=== PATIENT | male | born 1985 | race Caucasian/White ===

== ENCOUNTER 2017-12-20 11:25 | Emergency (ER) | payer BC, SELFPAY ==
[2017-12-20 11:53] LABS: #Basophils 0.1 thou/uL (0.0-0.2); #Eosinphils 0.1 thou/uL (0.0-0.7); #Lymphocytes 3.4 thou/uL (1.20-3.40); #Monocytes 0.7 thou/uL (0.11-0.59); #Neutrophils 6.3 thou/uL (1.40-6.50); %Basophils 0.7 % (0.0-1.0); %Eosinophils 0.9 % (0.0-10.0); %Lymphocytes 32.5 % (21.0-51.0); %Monocytes 6.7 % (0.0-10.0); %Neutrophils 59.2 % (42.0-75.0); Hemoglobin 17.2 g/dL (14.0-18.0); Mean Corpuscular HGB CONC 33.4 g/dL (32.0-36.0); Mean Corpuscular Volume 95.9 fL (78.0-98.0); Mean Platelet Volume 7.8 fL (7.4-10.4); Platelet Count 255 thou/uL (130-400); RBC Distribution Width 11.9 % (11.5-14.5); Red Blood Cell (RBC) Count 5.36 mill/uL (4.70-6.10); White Blood Cell (WBC) Count 10.6 thou/uL (4.8-10.8)
[2017-12-20 12:04] LABS: Anion Gap 12 mmol/L (10-20); BUN (Urea Nitrogen) 14 mg/dL (8.9-20.6); CRP (Inflammatory) Less than 0.50 mg/dL (= or < 0.5); Calc. Creatinine Clearance 0 mL/min (70-130); Calcium 9.5 mg/dL (7.8-10.44); Carbon Dioxide 26 mmol/L (22-29); Chloride 103 mmol/L (98-107); Estimated GFR-MDRD 81; Glucose 93 mg/dL (70-105); Potassium 4.3 mmol/L (3.5-5.1); Sodium 137 mmol/L (136-145)
[2017-12-20] MEDS ORDERED: Lidocaine 1% w/Epinephrine 1:100K 20 ML VIAL ONE (12:17)
[2017-12-20] MEDS ORDERED: Ketorolac Tromethamine 30 MG/ML VIAL ONE (13:12)
--- NOTE | 2017-12-20 13:13 | RAD ---
RIGHT KNEE FOUR VIEW SERIES: INDICATIONS: Pain. FINDINGS: There is joint capsular distention at the suprapatellar bursa. No evidence of fracture is seen. Chr onic appearing heterotopic density is present about the region of the tibial tuberosity. There is pr epatellar soft tissue swelling. IMPRESSION: Joint capsular distention. No underlying acute fracture is visualized. POS: [facility]
[2017-12-20] MEDS ORDERED: Ibuprofen 800 MG TAB ONE (13:15)
== END 2017-12-20 13:55 | disposition home or self-care (01) ==
LOC: ERS 11:25
DX: M25.461 Effusion, right knee (principal); M25.561 Pain in right knee; F17.220 Nicotine dependence, chewing tobacco, uncomplicated
CPT/HCPCS: 20610; 36415; 80048; 83605; 85025; 85652; 86140; 96372; J1885; J2001